=== PATIENT | female | born 1980 | race African-American/Black ===

== ENCOUNTER 2018-01-19 09:30 | Outpatient (CLI) | payer BC ==
--- NOTE | 2018-01-19 15:09 | MMO ---
BILATERAL SCREENING MAMMOGRAMS: DATE: 01/19/18. HISTORY: Baseline screening examination. The patient has a mother with a history of breast cancer at the age of 52 years. This study is interpreted with the assistance of computer-aided detection. FINDINGS: There is a heterogeneously dense parenchymal pattern which may lower the sensitivity of mammography. Intramammary lymph nodes are seen in the upper outer right breast. No dominant mass, suspicious jose uping of microcalcifications, or architectural distortion is seen in either breast. There is a punct ate benign-appearing calcification of the right breast. IMPRESSION: BI-RADS category 2, benign findings. Routine annual mammographic screening is recommended. BIRADS 2: Benign Finding(s) Routine annual screening mammography (for women over age 40) POS: [facility]
== END 2018-01-19 09:31 | disposition home or self-care (01) ==
LOC: SCSMAMMO 09:30
PROVIDERS: ATTEND Family Medicine
DX: Z12.31 Encounter for screening mammogram for malignant neoplasm of breast (principal); Z80.3 Family history of malignant neoplasm of breast
CPT/HCPCS: 77067

== ENCOUNTER 2018-12-07 10:12 | Outpatient (CLI) | payer BC ==
--- NOTE | 2018-12-07 11:05 | ULT ---
PELVIC ULTRASOUND: HISTORY: Excessive menses. FINDINGS: Real-time imaging of the pelvis was obtained transabdominally. This shows a uterus measuring 4.7 x 6 .2 x 9.3 cm. Endometrium is thickened in the 8 mm range. Just slightly to the right of midline in t he fundus region is an approximately 4.7 cm fibroid. The right and left ovaries are well visualized. There is a 2.6 cm left ovarian cyst present. DOPPLER EVALUATION WITH SPECTRAL ANALYSIS: Normal flow is shown to the adnexa. IMPRESSION: 1. Approximately 4.7 cm uterine fibroid. 2. A 2.7 cm left ovarian cyst. POS: [facility]
== END 2018-12-07 10:13 | disposition home or self-care (01) ==
LOC: SCSULT 10:12
PROVIDERS: ATTEND Family Medicine
DX: N92.0 Excessive and frequent menstruation with regular cycle (principal); D25.9 Leiomyoma of uterus, unspecified; N83.202 Unspecified ovarian cyst, left side
CPT/HCPCS: 76856; 93976

== ENCOUNTER 2022-12-30 09:08 | Outpatient (CLI) | payer MEDICAID | END 2022-12-30 09:09 | disposition home or self-care (01) | LOC: BICULT 09:08 | PROVIDERS: ATTEND Nurse Practitioner Women's Health | DX: N63.20 Unspecified lump in the left breast, unspecified quadrant (principal); R92.8 Other abnormal and inconclusive findings on diagnostic imaging of breast | CPT/HCPCS: G0279 ==